=== PATIENT | male | born 1970 | race Caucasian/White ===

== ENCOUNTER 2019-11-23 10:18 | Emergency (ER) | payer OTHER, SELFPAY ==
[2019-11-23 11:04] VITALS: BP 113/75; PULSE 66; RESP 20; TEMP 37; O2SAT 98
--- NOTE | 2019-11-23 11:45 | ED.GENADULT ---
HPI - General Adult General Chief complaint: Upper Respiratory Infection Stated complaint: body aches/diarrhea/cough Time Seen by Provider: 11/23/19 11:45 Source: patient and RN notes reviewed Mode of arrival: ambulatory Limitations: no limitations History of Present Illness HPI narrative: 49-year-old male with complaints of upper respiratory infection symptoms, body aches, facial congestion and pressure, cough, and intermittent headache (not the worst headache of his life) for 1 day. Tylenol and Advil with relief. Miller says he has TheraFlu and NyQuil at home but has not started. Recently traveled to [place] and returned on 11/19/19, symptoms started 3 days later. Spouse sent him here to be tested for flu. Dry cough. Intermittent sore throat (bilateral) with coughing episodes. No rhinorrhea. Nasal congestion. No exacerbating factors. No fevers or chills. Miller says he had 2 episodes of watery brown diarrhea on Saturday11/21/19 without blood. No nausea, vomiting, and abdominal pain. Denies chest pain, dyspnea, coughing up blood, difficulty swallowing, jaw pain, dental pain, facial pain, foreign body sensation, and rash. Remains active. Some parts of this dictation were generated by voice recognition software and may contain typographical and/or grammatical inaccuracies. Related Data Home Medications Medication Instructions Recorded Confirmed simvastatin 40 mg PO DAILY 11/23/19 11/23/19 Allergies Allergy/AdvReac Type Severity Reaction Status Date / Time No Known Allergies Allergy Verified 11/23/19 11:13 Review of Systems Review of Systems: Narrative: CONSTITUTIONAL: Denies fever, chills, sweats. EYES: Denies visual changes, redness, discharge. ENT: Complains of congestion, facial congestion and pressure, intermittent sore throat. Denies rhinorrhea, otalgia. CARDIOVASCULAR: Denies chest pain, palpitations, edema. RESPIRATORY: Denies dyspnea, wheezing. Complains of dry cough. GASTROINTESTINAL: Denies abdominal pain, nausea, vomiting. Complains of diarrhea. GENITOURINARY: Denies dysuria, hematuria, abnormal discharge SKIN: Denies rash or itching. MUSCULOSKELETAL: Denies acute back pain, joint pain. Complains of myalgia. NEUROLOGIC: Denies numbness or focal weakness. Complains of intermittent ALEGRIA. PSYCHIATRIC: Denies anxiety or depression. All systems reviewed & are unremarkable except as noted in HPI and below. [facility] Past Medical History Medical History (Updated 11/24/19 @ 05:45 by KARLI Aguillon) Hyperlipidemia Varicose veins of both lower extremities Ventral hernia Surgical History Surgical History (Updated 11/24/19 @ 05:44 by KARLI Aguillon) History of splenectomy Hx of appendectomy Family History Family History Mother Family history of mental disorder Social History Social History Second hand tobacco smoke exposure: No Alcohol intake: never Comments At time of signature, agree with nurse past medical, surgical, social, and family history. There is no relevant family history pertinent to the presenting complaint. Exam Narrative: Exam Narrative: GENERAL: This is a well-nourished, well-developed patient, in no apparent distress. Speaks in full sentences and ambulates with steady gait without dyspnea. HEAD: normocephalic, atraumatic. EYES: PERRL. Sclera clear/white. Vision is grossly intact. EARS: External ears normal, auditory canals clear and without drainage, TMs normal without perforation. Hearing grossly intact. NOSE: External nose normal with no obvious nasal discharge, nares with moderate redness and enlarged turbinates, clear rhinorrhea. THROAT: Mucous membranes moist, posterior pharynx with PND, mild erythema, and no exudate to tonsils. Tonsils normal. No drainage, no concern for Peritonsillar abscess. No drooling, trismus, or neck swelling. NECK: Ne
== END 2019-11-23 12:17 | disposition home or self-care (01) ==
PROVIDERS: Emergency Provider Nurse Practitioner Family; PCP Family Medicine
DX: B34.9 Viral infection, unspecified (principal); E78.5 Hyperlipidemia, unspecified
CPT/HCPCS: 87804; 99213; G0463

== ENCOUNTER 2020-08-23 08:58 | Outpatient (NON) | payer OTHER, SELFPAY ==
[2020-08-24 18:20] LABS: SARS-CoV-2 RNA PCR Positive
== END 2020-08-23 08:59 ==
LOC: ANHCOVIDDT 08:59
PROVIDERS: PCP Family Medicine; Visit Provider Physician Assistant
DX: U07.1 COVID-19 (principal)
CPT/HCPCS: 87635; C9803; U0003

== ENCOUNTER 2020-11-01 00:20 | Day surgery (SDC) | payer OTHER, SELFPAY ==
[2020-10-26 10:03] VITALS: BMI 34.7
[2020-11-01 11:43] VITALS: BP 126/79; PULSE 76; RESP 20; TEMP 36.7; O2SAT 99; BMI 35.6
[2020-11-01] MEDS: LACTATED RINGERS 1,000 ML 150 ML IV CONT (11:51)
--- NOTE | 2020-11-01 12:36 | WPDANESEPPF ---
Anes - Initial Pre Proc Eval Procedure: Operation Date: 11/01/20 12:30 Proposed Procedures p Screening Colonoscopy - Js Lozano MD Date/Time: 11/01/20 12:36 Surgeon: Js Lozano MD Pre Op Diagnosis: Neoplasm Screening Patient Data Age: 50 Gender: M Height: 5 ft 11 in Weight: 115.7 kg Last Vital Signs Temp 98.0 F 11/01/20 11:43 Pulse 76 11/01/20 11:43 Resp 20 11/01/20 11:43 BP 126/79 11/01/20 11:43 Pulse Ox 99 11/01/20 11:43 Allergies Allergy/AdvReac Type Severity Reaction Status Date / Time No Known Allergies Allergy Verified 10/26/20 10:05 Home Medications Medication Instructions Recorded Confirmed Type simvastatin 40 mg tablet 40 mg PO QPM #90 tablet 05/04/20 10/26/20 Rx sodium,potassium,mag sulfates 17.5 See Rx Instructions PO .COMPLEX 10/20/20 Rx gram-3.13 gram-1.6 gram oral soln #354 ml ecuudixhoftl-vuf-xtvg-FA-vit K 1 tablet PO DAILY 10/26/20 11/01/20 History [Adults Multivitamin] Patient hx anesthesia problems: none Family hx anesthesia problems: none PMFSH Past Medical History Medical History Hyperlipidemia Varicose veins of both lower extremities Ventral hernia Surgical History Surgical History H/O ventral hernia repair History of splenectomy Hx of appendectomy Family History Family History Mother Family history of mental disorder Social History Social History Smoking status: Never smoker Tobacco type: smokeless tobacco Smokeless tobacco user: chewing tobacco Second hand tobacco smoke exposure: No Alcohol intake: never Substance use: never Substance use type: does not use Living arrangements: with family Spiritual care concerns: No Anes - Eval Final PreProcedure Day of Procedure 11/01/20 12:36 Patient weight: overweight Heart: regular rate and rhythm Lungs: clear to auscultation Airway: Mallampati scale class II Neurological: alert and oriented Last oral intake: >/= 8 hours ASA classification: II Emergent: no Anesthetic plan: proceed Anesthesia type and monitoring: general GIVS and standard monitoring Informed Consent: The patient's anesthetic plan and its attendant risks and benefits were discussed with the patient/family/POA. Questions were solicited and answers provided to the satisfaction of the patient/family/POA.
--- NOTE | 2020-11-01 12:52 | PM.HPGS ---
History of Present Illness History of Present Illness Consent: Risks, benefits, and alternatives have been discussed and questions answered. Patient agrees to proceed with procedure. Chief complaint: Neoplasm Screening Narrative: Miller Pettit is a 50 year old male here for first screening colonoscopy Review of Systems Constitutional: Constitutional: Denies headache(s) and Denies weakness Eyes: Eyes: Denies blurry vision ENT: Reports Normal hearing present, Denies headache(s) and Denies neck pain Cardiovascular: Cardiovascular: Denies chest pain and Denies dyspnea Respiratory: Respiratory: Denies dyspnea Gastrointestinal: Gastrointestinal: Reports no additional gastrointestinal complaints Genitourinary: Genitourinary: Denies dysuria Musculoskeletal: Musculoskeletal: Denies neck pain Integumentary/Breasts: Skin/Breast: Denies dry skin Neurologic: Reports Normal hearing present, Denies headache(s) and Denies weakness Psychiatric: Psychiatric: Denies anxiety Endocrine: Endocrine: Denies change in body appearance Hematologic/Lymphatic: Hematologic/Lymphatic: Denies easy bleeding Allergic/Immunologic: Allergic/Immunologic: Denies urticaria PMFSH Past Medical History Medical History Hyperlipidemia Varicose veins of both lower extremities Ventral hernia Surgical History Surgical History H/O ventral hernia repair History of splenectomy Hx of appendectomy Family History Family History Mother Family history of mental disorder Social History Social History Smoking status: Never smoker Tobacco type: smokeless tobacco Smokeless tobacco user: chewing tobacco Second hand tobacco smoke exposure: No Alcohol intake: never Substance use: never Substance use type: does not use Living arrangements: with family Spiritual care concerns: No Meds Home Medications and Allergies Home Medications Medication Instructions Recorded Confirmed Type simvastatin 40 mg tablet 40 mg PO QPM #90 tablet 05/04/20 10/26/20 Rx sodium,potassium,mag sulfates 17.5 See Rx Instructions PO .COMPLEX 10/20/20 Rx gram-3.13 gram-1.6 gram oral soln #354 ml cxdqsrnojegs-xuc-iwym-FA-vit K 1 tablet PO DAILY 10/26/20 11/01/20 History [Adults Multivitamin] Allergies Allergy/AdvReac Type Severity Reaction Status Date / Time No Known Allergies Allergy Verified 10/26/20 10:05 Vital Signs Vital Signs - 24 hr 11/01/20 11:43 Temperature 98.0 F Pulse Rate 76 Respiratory Rate 20 Blood Pressure 126/79 Pulse Oximetry 99 Exam Const: General: comfortable and no acute distress HENMT: General nose exam: Normal nares present Eyes: General: appearance normal, both eyes and all related structures Neck: Neck: no JVD Resp: Auscultation: clear to auscultation bilaterally Cardio: Rate: regular rate Rhythm: regular rhythm GI: Inspection: non-distended GI Palp: Yes Soft to palpation Skin: General skin exam: normal color Neuro: General: gait normal Speech: normal speech Extrem: General: normal to inspection Psych: Mental Status: mental status grossly normal Assessment and Plan Assessment and plan (1) Colon cancer screening: Code(s): Z12.11 - Encounter for screening for malignant neoplasm of colon Status: Acute Assessment and Plan: will proceed with colonoscopy
[2020-11-01 13:14] VITALS: BP 95/49; PULSE 66; RESP 20; O2SAT 99
[2020-11-01 13:24] VITALS: BP 111/74; PULSE 60; RESP 18; O2SAT 99
[2020-11-01 13:34] VITALS: BP 109/79; PULSE 58; RESP 20; O2SAT 97
== END 2020-11-01 13:46 | disposition home or self-care (01) ==
PROVIDERS: PCP Physician Assistant; Visit Provider Internal Medicine Gastroenterology
PROC: 0DJD8ZZ Inspection of Lower Intestinal Tract, Via Natural or Artificial Opening Endoscopic (ICD-10-PCS; CPT 45378; principal; 2020-11-01 12:30)
DX: Z12.11 Encounter for screening for malignant neoplasm of colon (principal); K63.5 Polyp of colon; K64.8 Other hemorrhoids; E78.5 Hyperlipidemia, unspecified; F17.220 Nicotine dependence, chewing tobacco, uncomplicated
CPT/HCPCS: 45378; 88305; J2704; J7120

== ENCOUNTER → 2022-06-08 09:16 | Outpatient (CLI) | payer BC, SELFPAY ==
--- NOTE | ~2022-06-08 | XR_ITS ---
EXAMINATION: XR hip LT min 2V INDICATION: Left hip pain TECHNIQUE: Two views of the left hip are obtained. COMPARISON: None available FINDINGS: Bone alignment is normal. There is no fracture. There is mild osteoarthritis of the hip. Ph leboliths are noted in the pelvis. IMPRESSION: 1. Mild osteoarthritis. Reviewed, dictated and finalized at location A. IMPRESSION: 1. Mild osteoarthritis.
== END ==
PROVIDERS: PCP Physician Assistant; Visit Provider Physician Assistant
DX: M16.12 Unilateral primary osteoarthritis, left hip (principal)
CPT/HCPCS: 73502

== ENCOUNTER → 2023-06-21 15:05 | Outpatient (CLI) | payer BC, SELFPAY ==
--- NOTE | ~2023-06-21 | CT_ITS ---
EXAMINATION: CT abdomen pelvis wo con DATE: 06/21/2023 15:21 INDICATION: Incisional hernia without obstruction or gangrene. TECHNIQUE: Computed tomography (CT) of the abdomen and pelvis was performed without intravenous contr ast. Automated exposure control and iterative reconstruction technique were employed. The dose-length product was 1106.65 mGy-cm. COMPARISON: None. FINDINGS: The visualized portions of the lung bases demonstrate minimal atelectasis. No pleural effus ion. The heart size is normal. No pericardial effusion. There is a 6 mm cyst in the liver. There is s plenosis in left upper quadrant. The pancreas, adrenal glands, and kidneys are normal. There is a sup raumbilical ventral hernia containing fat. Fat stranding associated with the hernia may be inflammati on or scarring. There is an umbilical hernia containing fat. There are bilateral inguinal hernias con taining fat. There are no dilated loops of bowel. The appendix is normal. There are no pathologically enlarged lymph nodes. There is no free intraperitoneal fluid. There is mild thoracic and lumbar spon dylosis. IMPRESSION: 1. Supraumbilical ventral hernia containing fat. 2. Umbilical hernia containing fat. 3. Bilateral inguinal hernias containing fat. Reviewed, dictated and finalized at location E.
== END ==
PROVIDERS: PCP Surgery; Visit Provider Surgery
DX: K43.9 Ventral hernia without obstruction or gangrene (principal); K42.9 Umbilical hernia without obstruction or gangrene; K40.20 Bilateral inguinal hernia, without obstruction or gangrene, not specified as recurrent
CPT/HCPCS: 74176

== ENCOUNTER 2023-09-04 08:00 | Outpatient (CLI) | payer BC, SELFPAY ==
--- NOTE | 2023-09-04 08:00 | ECG_ITS ---
Measurements Intervals [place] Rate: 60 P: 22 AR: 177 QRS: -28 QRSD: 109 T: 44 QT: 418 QTc: 418 Interpretive Statements SINUS RHYTHM POOR R WAVE PROGRESSION, ANTERIOR LEADS BASELINE ARTIFACT- I, AVR BORDERLINE ECG NO PREVIOUS ECG AVAILABLE FOR COMPARISON Electronically Signed On 09-04-2023 9:11:07 [employer]PERVIS[employer] by German Calles D.O.
== END 2023-09-04 08:01 | disposition home or self-care (01) ==
LOC: ANHSURGERY 08:07
PROVIDERS: PCP Physician Assistant; Visit Provider Surgery
DX: Z01.818 Encounter for other preprocedural examination (principal); E78.5 Hyperlipidemia, unspecified; K43.2 Incisional hernia without obstruction or gangrene; R93.1 Abnormal findings on diagnostic imaging of heart and coronary circulation
CPT/HCPCS: 36415; 86850; 86900; 86901; 93005

== ENCOUNTER 2023-09-05 00:31 | Day surgery (SDC) | payer BC, SELFPAY ==
[2023-08-30 11:17] VITALS: BMI 34.8
--- NOTE | 2023-08-30 11:30 | PC.NURSE ---
Report to the Outpatient Waiting Room, entrance under the green pavilion located off [facility], at time 12:00 on date 09/05/23. Planned Procedure Time: 2:00. Time changes happen often and if your time is changed the preop area will call you the afternoon before. - You and your visitor will be asked to self-screen and do not enter if you have any COVID symptoms. - A mask is optional within the hospital at this time. Patients may have clear liquids (water, carbonated beverages, clear teas, apple juice) until 3 hours prior to surgery (11:00) with a maximum of 20 ounces. - No food from midnight until time of surgery Take the following medications with a SIP of water the morning of surgery: NONE DO NOT STOP ANY OF YOUR OTHER PRESCRIPTION MEDICATIONS PRIOR TO SURGERY ?EXCEPT THE FOLLOWING Medications to discontinue per physician: VITAMINS/SUPPLEMENTS Date to take last dose: 09/01/[address] PATRICK REGARDING MELOXICAM. Please no make-up, nail canadian, hairspray, perfume, deodorant, or body powder the day of surgery. No jewelry (including any body piercings) or valuables the day of surgery, leave them at home. Please take a shower or bath the night before, or the morning of, surgery with an antibacterial soap. Wear comfortable, loose fitting clothing. - Jewelry must be removed prior to entering the operating room. Rings and piercings that are not removed may be cut off. - The hospital will not accept responsibility for valuables. - Please leave all valuables, including medications, at home the day of surgery. If you are going home after surgery, a licensed long haul truck driver must drive you home. - NO public transportation without another adult if you receive anesthesia. - We recommend that an adult stay with you for 24 hours following discharge. - We also recommend that you do not drive, make important decision, drink alcoholic beverages, or take any drugs that were not prescribed by your health care provider for at least 24 hours after your discharge time. Follow any additional instructions given to you from your surgeon. If you or anyone in your household have experienced Covid symptoms in the past week, please notify your surgeon or the nurse liaison at the phone number below for possible testing. Telephone instructions given to PT - DANAY LAGUNA and asked if any additional questions and then verbalized understanding. Patient advised to call surgeon office or pre surgery nurse liaison [phone] if any additional questions.
[2023-09-05] VITALS (7 sets, daily range): BP systolic 93–124; BP diastolic 61–77; PULSE 56–70; RESP 12–18; TEMP 36.2–36.8; O2SAT 97–100; BMI 35.3
--- NOTE | 2023-09-05 12:04 | PM.IMHP ---
H&P: HPI History of Present Illness Date/Time: 09/05/23 12:04 Chief Complaint: incisional hernia Narrative: Miller is a 53 y/o male who presents to the office at the request of Myriam Dominguez PA-C for evaluation of an incisional hernia. Patient states he first noticing bulging around his umbilicus about 5 years ago. He states the bulge has become more prominent for the last year. He states the bulge is reducible and occasionally causes discomfort. Patient has a history of previous hernia repair and well as a splenectomy. Review of Systems Review of Systems: All systems reviewed & are unremarkable except as noted in HPI and below PMFSH Past Medical History Medical History Hyperlipidemia Varicose veins of both lower extremities Ventral hernia Surgical History Surgical History H/O ventral hernia repair History of splenectomy Hx of appendectomy Family History Family History Mother Family history of mental disorder Social History Social History Smoking status: Former smoker Tobacco type: cigarettes Smokeless tobacco user: chewing tobacco Second hand tobacco smoke exposure: No Additional smoking assessment comments: SMOKED IN COLLEGE, SOMETIMES CHEWS Alcohol intake: never Alcohol use details: seldom; socially Substance use: never Substance use type: does not use Lack of Transportation: No Lack of Food: Never True Current Housing: I Have Housing Concerned About Future Housing: No Difficulty Paying Gas/Electric Bills: No Difficulty Paying for Meds: No Currently Unemployed: No Education: Bachelor's Degree Difficulty w/ Childcare or Family Care: No Living arrangements: with family Occupation/Education: occupation Gender identity (if verbalized by the patient): Male Sexual Orientation (if Verbalized by the Patient): Straight or Heterosexual Spiritual care concerns: No Meds Home Medications and Allergies Home Medications Medication Instructions Recorded Confirmed Type multivit with minerals-iron 18 1 tablet PO DAILY 10/26/20 08/30/23 History mg-folic ac 400 mcg-vit K 25 mcg tablet (Adults Multivitamin) meloxicam 15 mg tablet 15 mg PO DAILY #30 tabs 05/30/23 08/30/23 Rx simvastatin 40 mg tablet See Rx Instructions .Route 08/28/23 08/30/23 Rx .COMPLEX #90 tabs Allergies Allergy/AdvReac Type Severity Reaction Status Date / Time No Known Allergies Allergy Verified 08/30/23 11:16 Exam Const: General: cooperative, comfortable and no acute distress Resp: Auscultation: clear to auscultation bilaterally Cardio: Rate: regular rate Rhythm: regular rhythm GI: Inspection: normal to inspection GI Palp: Yes abdominal tenderness, Yes Soft to palpation, Yes Tenderness to palpation present (GI) and Yes Hernia present Assessment and Plan Assessment and plan (1) Incisional hernia: Qualifiers: Obstruction and gangrene presence: without obstruction or gangrene Qualified Code(s): K43.2 - Incisional hernia without obstruction or gangrene Code(s): K43.2 - Incisional hernia without obstruction or gangrene Status: Acute Assessment and Plan: will setup for robotic assisted repair c mesh
[2023-09-05] MEDS: KETOROLAC 15 MG/ML VIAL (*BKC) IV PUSH (12:54)
[2023-09-05] MEDS: ACETAMINOPHEN 500 MG TABLET 1000 MG PO (12:54)
--- NOTE | 2023-09-05 13:24 | WPDANESEPPF ---
Anes - Initial Pre Proc Eval Procedure: Operation Date: 09/05/23 14:00 Proposed Procedures p Robotic Assisted Incisional Hernia Repair with Mesh - Nati Morrell MD Date/Time: 09/05/23 13:24 Surgeon: Nati Morrell MD Pre Op Diagnosis: Incisional Hernia Patient Data Age: 53 Gender: M Height: 1.8 m Weight: 114.8 kg Last Vital Signs Temp 36.8 C 09/05/23 12:09 Pulse 56 L 09/05/23 12:09 Resp 18 09/05/23 12:09 BP 124/77 09/05/23 12:09 Pulse Ox 98 09/05/23 12:09 O2 Del Method Room Air 09/05/23 12:09 Allergies Allergy/AdvReac Type Severity Reaction Status Date / Time No Known Allergies Allergy Verified 08/30/23 11:16 Home Medications Medication Instructions Recorded Confirmed Type multivit with minerals-iron 18 1 tablet PO DAILY 10/26/20 09/05/23 History mg-folic ac 400 mcg-vit K 25 mcg tablet (Adults Multivitamin) meloxicam 15 mg tablet 15 mg PO DAILY #30 tabs 05/30/23 09/05/23 Rx simvastatin 40 mg tablet See Rx Instructions .Route 08/28/23 09/05/23 Rx .COMPLEX #90 tabs Patient hx anesthesia problems: none Family hx anesthesia problems: none Results Review: All pre-operative results and documents have been reviewed as part of the pre-operative evaluation. [facility] Past Medical History Medical History Hyperlipidemia Varicose veins of both lower extremities Ventral hernia Surgical History Surgical History H/O ventral hernia repair History of splenectomy Hx of appendectomy Family History Family History Mother Family history of mental disorder Social History Social History Smoking status: Former smoker Tobacco type: cigarettes Smokeless tobacco user: chewing tobacco Second hand tobacco smoke exposure: No Additional smoking assessment comments: SMOKED IN COLLEGE, SOMETIMES CHEWS Alcohol intake: never Alcohol use details: seldom; socially Substance use: never Substance use type: does not use Lack of Transportation: No Lack of Food: Never True Current Housing: I Have Housing Concerned About Future Housing: No Difficulty Paying Gas/Electric Bills: No Difficulty Paying for Meds: No Currently Unemployed: No Education: Bachelor's Degree Difficulty w/ Childcare or Family Care: No Living arrangements: with family Occupation/Education: occupation Gender identity (if verbalized by the patient): Male Sexual Orientation (if Verbalized by the Patient): Straight or Heterosexual Spiritual care concerns: No Anes - Eval Final PreProcedure Day of Procedure 09/05/23 13:24 Patient weight: obese Heart: regular rate and rhythm Lungs: clear to auscultation Airway: Mallampati scale class II Neurological: alert and oriented Last oral intake: >/= 8 hours ASA classification: II Emergent: no Anesthetic plan: proceed Anesthesia type and monitoring: general ETT and standard monitoring Results Review: All pre-operative results and documents have been reviewed as part of the pre-operative evaluation. Informed Consent: The patient's anesthetic plan and its attendant risks and benefits were discussed with the patient/family/POA. Questions were solicited and answers provided to the satisfaction of the patient/family/POA.
--- NOTE | 2023-09-05 13:30 | WPDHPUPDATE1 ---
History and Physical Update Update Date/Time: 09/05/23 13:30 History and Physical has been reviewed, including an updated exam of the patient. There are NO changes in the patient's condition. Risks, benefits, and alternatives have been discussed and questions answered. Patient agrees to proceed with procedure.
[2023-09-05] MEDS: ceFAZolin 2 GM/D5W 50 ML 2 GM/50 ML BAG IVPB (13:55)
[2023-09-05] MEDS: BUPIVACAINE/EPINEPHRINE 0.5% 50 ML VIAL 30 ML INFILTRATE (14:37)
--- NOTE | 2023-09-05 15:24 | W.PM.PROC2 ---
Procedure Note - Detailed Date of Procedure 09/05/23 Pre-op Diagnosis Incisional Hernia Post-op Diagnosis Same Procedure Performed Robotic assisted repair incisional hernia with 3 separate defects measuring total of 5 cm, extensive lysis of adhesions requiring 30 minutes Surgeon Nati Morrell MD Anesthesia General Indications 53-year-old male presenting to the office with a incisional hernia from previous splenectomy. Patient noted to have at least 2 defects during examination with largest being in the supraumbilical region. Findings 1 cm umbilical defect, 3 cm supraumbilical defect, 1 cm defect superior to 3 cm defect Description of Procedure The patient was taken the operating room placed in the supine position. After adequate induction of general anesthesia, the patient was prepped and draped in normal sterile fashion. A time-out was then done to verify the patient's identity as well as the procedure being performed. I began by making a 5 mm incision in the left upper quadrant. Through this, a Veress needle was placed into the peritoneal cavity and CO2 gas was insufflated. After adequate pneumoperitoneum was achieved, a 5 mm trocar was placed through this incision. I then placed the laparoscope through this trocar site and under direct visualization I placed a 8 mm port in the left mid abdomen as well as an additional 8 mm port in the left lower abdomen. I then moved the camera to the lower port and replaced the 5 mm port with a 12 mm airport. The robot was then docked to the 3 port sites. I then went to the robotic console. I began by identifying the hernia. A moderate-sized incarcerated hernia was noted in the supraumbilical region. There was noted to be extensive adhesions to the midline and these were taken down sharply with the cautery. This encompassed the entire midline of the abdomen and this lysis of adhesions took 30 minutes. Using graspers, I was able to reduce this 3 cm supraumbilical hernia. The hernia was noted to contain a large amount of preperitoneal fat and omentum. Once reduced, I also reduced and dissected out the hernia sac. There was noted to be a smaller 1 cm defect at the umbilicus that was also reduced. Superior to the 3 cm defect there was a no other small 1 cm defect that was reduced. The total of the defects measured 5 cm. I then closed all of the defects with 0 strata fix suture. I then placed a 10 x [address] mesh into the abdominal cavity. The positional stitch was placed in the middle of the mesh and brought up centering the mesh over the largest defect. Once this was done, I used 2 0 V lock suture x 2 to circumferentially suture the mesh to the abdominal. Once the mesh was completely sutured in, I was happy with our tension-free repair. The mesh was noted to have good overlap of the defects. I then removed the positioning device. At this point, the robot was undocked and all ports were removed. I then closed the 12 mm port site with an 0 Vicryl [id number] suture at the fascial level. All port sites were then closed with 4 O Monocryl subcuticular suture. The patient tolerated the procedure well, is extubated in the operating room postoperative, and will be transferred to the recovery room in stable condition. Implants 10 x [address] mesh Estimated Blood Loss 10 Drains No Packing No Pathology None sent Complications No immediate complications Condition Stable Disposition PACU [facility] Billing Surgery - Charge Forward: Surgery Billing
[2023-09-05] MEDS: LACTATED RINGERS 1,000 ML 30 ML IV CONT ×2 (15:34→15:52)
[2023-09-05] MEDS: oxyCODONE HCL (*CRX) 5 MG TAB IR PO (16:45)
== END 2023-09-05 17:27 | disposition home or self-care (01) ==
PROVIDERS: PCP Physician Assistant; Visit Provider Surgery
PROC: (CPT 49593; principal; 2023-09-05 14:00)
DX: K43.2 Incisional hernia without obstruction or gangrene (principal); E78.5 Hyperlipidemia, unspecified; Z72.0 Tobacco use; E66.9 Obesity, unspecified; Z68.35 Body mass index [BMI] 35.0-35.9, adult
CPT/HCPCS: 49593; S2900; 36415; 86850; 86900; 86901; 93005; A9270; C1781; J0360; J0690; J1100; J1170; J1885; J2250; J2405; J2704; J3010; J7120

== ENCOUNTER 2024-07-16 06:36 | Day surgery (SDC) | payer OTHER, SELFPAY ==
[2024-06-24 10:08] VITALS: BMI 36.6
[2024-07-07 10:39] VITALS: BMI 34.7
--- NOTE | 2024-07-16 07:14 | PM.HPGS ---
History of Present Illness History of Present Illness Consent: Risks, benefits, and alternatives have been discussed and questions answered. Patient agrees to proceed with procedure. Chief complaint: Personal HX of Colonic Polyps Narrative: Miller Pettit is a 54 year old male presents for screening colonoscopy. Patient's current weight appetite and bowel movements are normal. Patient denies abdominal pain. He has had no bleeding. Family history noncontributory. Previous colonoscopy in 2020 revealed a tubulovillous adenoma. Review of Systems Review of Systems: All systems reviewed & are unremarkable except as noted in HPI and below PMFSH Past Medical History Medical History Hyperlipidemia Varicose veins of both lower extremities Ventral hernia Surgical History Surgical History H/O ventral hernia repair History of splenectomy Hx of appendectomy Family History Family History Mother Family history of mental disorder Social History Social History Smoking status: Current every day smoker Tobacco type: smokeless tobacco Smokeless tobacco user: chewing tobacco Second hand tobacco smoke exposure: No Additional smoking assessment comments: SMOKED IN COLLEGE, SOMETIMES CHEWS Alcohol intake: former Alcohol use details: seldom; socially Substance use: former Substance use type: marijuana Other substance usage details: college Lack of Transportation: No Lack of Food: Never True Current Housing: I Have Housing Concerned About Future Housing: No Difficulty Paying Gas/Electric Bills: No Difficulty Paying for Meds: No Currently Unemployed: No Education: Bachelor's Degree Difficulty w/ Childcare or Family Care: No Living arrangements: with family Occupation/Education: occupation Gender identity (if verbalized by the patient): Male Sexual Orientation (if Verbalized by the Patient): Straight or Heterosexual Spiritual care concerns: No Meds Home Medications and Allergies Home Medications Medication Instructions Recorded Confirmed Type multivit with minerals-iron 18 1 tablet PO DAILY 10/26/20 07/07/24 History mg-folic ac 400 mcg-vit K 25 mcg tablet (Adults Multivitamin) simvastatin 40 mg tablet See Rx Instructions .Route 03/04/24 07/07/24 Rx .COMPLEX #90 tabs sodium,potassium,mag sulfates 17.5 See Rx Instructions PO .COMPLEX 06/24/24 07/07/24 Rx gram-3.13 gram-1.6 gram oral soln #354 mL (Suprep Bowel Prep Kit) meloxicam 15 mg tablet 15 mg PO DAILY #30 tabs 07/05/24 07/07/24 Rx Vitamin B-12 1 tab-cap PO DAILY 07/07/24 07/07/24 History Allergies Allergy/AdvReac Type Severity Reaction Status Date / Time No Known Allergies Allergy Verified 07/16/24 07:10 Exam Narrative: Exam reveals patient to be alert. Vital signs stable. HEENT exam is unremarkable. Patient is anicteric. Lungs are clear to auscultation and to percussion is a. Heart is without murmur or extra sounds. Abdominal exam bowel sounds are present soft nontender with no organomegaly. Digital external rectal exam is normal. Assessment and Plan Assessment and plan (1) History of colon polyps: Code(s): Z86.010 - Personal history of colonic polyps Status: Acute Assessment and Plan: Patient has a history of tubulovillous adenomatous polyp removed from the colon [address] Clay. Plan for surveillance colonoscopy at this time. Further recommendations may be given after endoscopy.
[2024-07-16] MEDS: LACTATED RINGERS 1,000 ML 150 ML IV CONT (07:20)
[2024-07-16 07:21] VITALS: BP 120/88; PULSE 60; RESP 18; TEMP 36.7; O2SAT 97; BMI 35.8
--- NOTE | 2024-07-16 07:30 | WPDANESEPPF ---
Anes - Initial Pre Proc Eval Procedure: Operation Date: 07/16/24 08:00 Proposed Procedures p Diagnostic Colonoscopy - Ric Houston MD Date/Time: 07/16/24 07:30 Surgeon: Ric Houston MD Pre Op Diagnosis: Personal HX of Colonic Polyps Patient Data Age: 54 Gender: M Height: 1.8 m Weight: 116.45 kg Last Vital Signs Temp 36.7 C 07/16/24 07:21 Pulse 60 07/16/24 07:21 Resp 18 07/16/24 07:21 BP 120/88 07/16/24 07:21 Pulse Ox 97 07/16/24 07:21 O2 Del Method Room Air 07/16/24 07:21 Allergies Allergy/AdvReac Type Severity Reaction Status Date / Time No Known Allergies Allergy Verified 07/16/24 07:10 Home Medications Medication Instructions Recorded Confirmed Type multivit with minerals-iron 18 1 tablet PO DAILY 10/26/20 07/07/24 History mg-folic ac 400 mcg-vit K 25 mcg tablet (Adults Multivitamin) simvastatin 40 mg tablet See Rx Instructions .Route 03/04/24 07/07/24 Rx .COMPLEX #90 tabs sodium,potassium,mag sulfates 17.5 See Rx Instructions PO .COMPLEX 06/24/24 07/07/24 Rx gram-3.13 gram-1.6 gram oral soln #354 mL (Suprep Bowel Prep Kit) meloxicam 15 mg tablet 15 mg PO DAILY #30 tabs 07/05/24 07/07/24 Rx Vitamin B-12 1 tab-cap PO DAILY 07/07/24 07/07/24 History Patient hx anesthesia problems: none Family hx anesthesia problems: none Results Review: All pre-operative results and documents have been reviewed as part of the pre-operative evaluation. [facility] Past Medical History Medical History Hyperlipidemia Varicose veins of both lower extremities Ventral hernia Surgical History Surgical History H/O ventral hernia repair History of splenectomy Hx of appendectomy Family History Family History Mother Family history of mental disorder Social History Social History (Updated 09/26/24 @ 07:30 by Aaron Jacques MD) Tobacco type: smokeless tobacco Smokeless tobacco user: chewing tobacco Second hand tobacco smoke exposure: No Additional smoking assessment comments: SMOKED IN COLLEGE, SOMETIMES CHEWS Alcohol intake: former Alcohol use details: seldom; socially Substance use: former Substance use type: marijuana Other substance usage details: college Lack of Transportation: No Lack of Food: Never True Current Housing: I Have Housing Concerned About Future Housing: No Difficulty Paying Gas/Electric Bills: No Difficulty Paying for Meds: No Currently Unemployed: No Education: Bachelor's Degree Difficulty w/ Childcare or Family Care: No Living arrangements: with family Occupation/Education: occupation Gender identity (if verbalized by the patient): Male Sexual Orientation (if Verbalized by the Patient): Straight or Heterosexual Spiritual care concerns: No Anes - Eval Final PreProcedure Day of Procedure 07/16/24 07:30 Patient weight: obese Heart: regular rate and rhythm Lungs: clear to auscultation Airway: Mallampati scale class II Neurological: alert and oriented Last oral intake: >/= 8 hours ASA classification: II Emergent: no Anesthetic plan: proceed Anesthesia type and monitoring: general GIVS and standard monitoring Results Review: All pre-operative results and documents have been reviewed as part of the pre-operative evaluation. Informed Consent: The patient's anesthetic plan and its attendant risks and benefits were discussed with the patient/family/POA. Questions were solicited and answers provided to the satisfaction of the patient/family/POA.
[2024-07-16 07:57] VITALS: BP 107/76; PULSE 59; RESP 15; O2SAT 96
[2024-07-16 08:07] VITALS: BP 122/81; PULSE 54; RESP 15; O2SAT 95
--- NOTE | 2024-07-16 08:13 | WPDANESPN ---
Anes - Prog Note Post-Op Date/Time: 07/16/24 08:13 Cardiovascular status: normal Respiratory status: normal Airway patency: baseline Mental status: baseline Post-Op hydration status: normal Vital Signs: Last Vital Signs Temp 36.7 C 07/16/24 07:21 Pulse 59 L 07/16/24 07:57 Resp 15 07/16/24 07:57 BP 107/76 07/16/24 07:57 Pulse Ox 96 07/16/24 07:57 O2 Del Method Room Air 07/16/24 07:57 Pain Score (VAS): 0/10 I/O: Intake & Output 07/15/24 07/16/24 07/16/24 23:59 07:59 15:59 Intake Total 400 Balance 400 Patient Feedback: Patient satisfied with anesthetic care.
[2024-07-16 08:17] VITALS: BP 118/90; PULSE 52; RESP 15; O2SAT 98
== END 2024-07-16 09:01 | disposition home or self-care (01) ==
PROVIDERS: PCP Family Medicine; Visit Provider Internal Medicine Gastroenterology
PROC: 0DJD8ZZ Inspection of Lower Intestinal Tract, Via Natural or Artificial Opening Endoscopic (ICD-10-PCS; CPT 45378; principal; 2024-07-16 08:00)
DX: Z86.010 Personal history of colon polyps (principal); K64.8 Other hemorrhoids
CPT/HCPCS: 45378

== ENCOUNTER 2024-12-16 07:15 | Outpatient (CLI) | payer OTHER, SELFPAY ==
--- NOTE | ~2024-12-16 | XR_ITS ---
AP view of the pelvis and AP and lateral views of the left hip Clinical history: Pain Findings: No acute fracture or dislocation is seen. Osseous alignment is anatomic. There is moderate to advanced degenerative change of the left hip joint, especially the superior aspect with joint spac e narrowing and mild reactive sclerosis.. Soft tissues are unremarkable. 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 Reviewed, dictated and finalized at 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
== END 2024-12-16 07:16 | disposition home or self-care (01) ==
PROVIDERS: PCP Family Medicine; Visit Provider Student in an Organized Health Care Education/Training Program
DX: M16.9 Osteoarthritis of hip, unspecified (principal); M16.12 Unilateral primary osteoarthritis, left hip
CPT/HCPCS: 73502